=== PATIENT | male | born 1995 | race Caucasian/White ===

== ENCOUNTER 2025-04-22 04:26 | Emergency (ER) | payer OTHER, SELFPAY ==
[2025-04-22 04:27] VITALS: BP 135/88
--- NOTE | 2025-04-22 04:46 | ED.GENMED ---
History of Present Illness
General
Chief Complaint: Abdominal Pain
Source: patient
Time Seen by Provider: 04/22/25 04:38
History of Present Illness
History of Present Illness:
29-year-old male presents to the emergency room complaining of left upper abdominal pain. Patient first noticed this left upper discomfort about 4 days ago. Patient was at a conference in [place] and he noticed the pain after he had been out
drinking. The left upper quadrant pain has persisted. He took ibuprofen without any improvement. The pain is mild but persistent. Some nausea but no vomiting. No diarrhea. Patient denies previous episodes of pain such as this. No previous
abdominal surgery. No urinary symptoms.
Phy Exam
Physical Exam
Physical Exam:
General: Awake, Alert, Oriented X3. No acute distress.
Vitals: unremarkable
Head: Atraumatic
Eyes: Pupils equal, EOMI
Throat: Airway intact, no exudates
Neck: Trachea midline
Lungs: Clear and equal b/l
Heart: Regular rate, no murmurs
Abd: Soft, mild left upper abdominal tenderness palpation, No pulsatile mass
Neuro: Nonfocal
Skin: Warm, dry, no rash
Extremities: pulses equal b/l, no edema
Course
Orders/Labs/Results
Orders:
Orders
04/22/25 04:45
0.9% Sodium Chloride 1000 ml [Nss] 1,000 ml IV BOLUS
Mag Hydrox/Al Hydrox/Simeth [Maalox] 30 ml Phenobarb/Hyoscy/Atropine/Scop [] 10 ml PO NOW
Pantoprazole [Protonix IV] 40 mg IV NOW STA
04/22/25 05:09
Mag Hydrox/Al Hydrox/Simeth [Maalox] 30 ml .ROUTE .STK-MED ONE
Phenobarb/Hyoscy/Atropine/Scop [] 10 ml .ROUTE .STK-MED ONE
04/22/25 05:12
Complete Blood Count/With Diff Urgent
Comprehensive Metabolic Panel Urgent
Lipase Urgent
04/22/25 05:27
Urinalysis Reflex To Culture Urgent
Date Specimen was Collected: 04/22/25
Time Specimen was Collected: :25
Abnormal Lab Results
04/22/25
05:12
WBC 3.3 L 10^3/uL
(4.8-10.8)
RBC 4.39 L 10^6/uL
(4.70-6.10)
MPV 10.6 H fL
(7.4-10.4)
Absolute Lymphs (auto) 1.0 L 10^3/uL
(1.2-3.4)
Monocytes % 11.0 H %
(1.7-9.3)
Glucose 105 H mg/dl
(70-99)
Total Protein 6.2 L g/dl
(6.3-8.2)
04/22/25 05:12
04/22/25 05:12
Vital Signs
Initial and Last Documented VS:
Initial Vital Signs
Temp Pulse Resp BP Pulse Ox
97.7 F 62 18 135/88 100
04/22/25 04:27 04/22/25 04:27 04/22/25 04:27 04/22/25 04:27 04/22/25 04:27
Last Documented Vital Signs
Temp Pulse Resp BP Pulse Ox
97.7 F 77 18 110/75 99
04/22/25 04:27 04/22/25 06:30 04/22/25 06:30 04/22/25 06:30 04/22/25 06:30
MDM/Problems Addressed
Differential Diagnosis Includes:
Gastritis, diverticulitis, pancreatitis
MDM/Problems Addressed:
Patient presents with nausea vomiting abdominal pain. Workup here is reassuring. Patient feels better after symptomatic treatment. Suspect gastritis. Stable for discharge home.
*Pulse Oximetry
SaO2: 100
Oxygen Mode of Delivery: Room air
Patient hypoxic: no
*Critical Care Note
Total Time (30-74mins, 75-104mins- exclusive of procedures): Not Applicable
ED Attending Note
-
Portions of this chart may have been created with voice recognition software.� Occasional wrong word or��sound alike� substitutions may have occurred due to the inherent limitations of voice recognition software.
Discharge Plan
Departure
Patient Disposition: Home (Routine Discharge)
Date of Disposition: 04/22/25
Time of Disposition: 06:10
Patient with high blood pressure during this ER visit?: No
Condition: Good
Discharge Problem:
Gastritis
Instructions: Gastritis, Abdominal Pain
Referrals:
NONE,* [Family Provider, Internal Medicine]
Activity Restrictions/Additional Instructions:
Take Prilosec OTC for the next month.
Interventions
Interventions:
*Risk Screen - Suicide Last Done: 04/22/25 04:27
*General Assessment Last Done: 04/22/25 05:20
*Neglect/Abuse Screening Last Done: 04/22/25 04:27
*ED- Fall Risk Assessment Last Done: 04/22/25 05:20
*ED COVID-19 Vaccine History Last Done: 04/22/25 05:20
*ED Influenza Vaccine History Last Done: 04/22/25 05:20
*Nursing Disposition Last Done: 04/22/25 06:40
KG-Wxotrd-Snyrqultiz Assessment Last Done: 04/22/25 05:20
Discharge Date and Time
Discharge Date/Time: 04/22/25 06:40
Print Language: FRISIAN
[2025-04-22] MEDS: MAALOX 40 PO (05:13)
[2025-04-22] MEDS: NSS 1000 IV (05:21)
[2025-04-22] MEDS: PROTONIX IV 40 MG IV (05:21)
[2025-04-22 05:46] LABS: Hematocrit 39.4 % (39.0-52.0); Hemoglobin 13.1 g/dL (13.0-18.0); Mean Corp Hgb Conc. 33.2 g/dL (33.0-37.0); Mean Corpuscular Volume 89.7 fL (80.0-94.0); Nucleated Red Blood Cells % 0 % (-); Platelet Count 143 10^3/uL (130-400); Red Cell Dist. Width 11.9 % (11.5-14.5)
[2025-04-22 06:06] LABS: ALT (SGPT) 14 U/L (0-50); AST (SGOT) 24 U/L (17-59); Albumin 4.3 g/dl (3.5-5.0); Alkaline Phosphatase 60 U/L (38-126); Blood Urea Nitrogen 13 mg/dl (9-20); Calcium 9.3 mg/dl (8.4-10.2); Carbon Dioxide 29 mmol/L (22-30); Chloride 105 mmol/L (98-107); Glucose 105 mg/dl (70-99); Lipase 70 U/L (23-300); Potassium 4.2 mmol/L (3.5-5.1); Sodium 140 mmol/L (135-145); Total Protein 6.2 g/dl (6.3-8.2); eGFR > 60.00
[2025-04-22 06:10] LABS: Urine Character Clear (Clear)
[2025-04-22 06:30] VITALS: BP 110/75
== END 2025-04-22 06:40 | disposition home or self-care (01) ==
LOC: EMR 04:26
PROVIDERS: EMERGENCY PHYSICIAN Emergency Medicine
DX: K29.70 Gastritis, unspecified, without bleeding (principal)
CPT/HCPCS: 99284; 96374; 96361; 80053; 81003; 83690; 85025